=== PATIENT | female | born 1970 | race Caucasian/White ===

== ENCOUNTER 2023-06-14 08:40 | Emergency (ER) | payer OTHER, SELFPAY ==
[2023-06-14] VITALS (33 sets, daily range): BP systolic 84–129; BP diastolic 59–95; PULSE 71–102; RESP 10–27; O2SAT 92–99; BMI 38.7
--- NOTE | 2023-06-14 08:48 | XR_ITS ---
The [address] [address] Patient Name: ARSENIO DUMONT MRN: [id number] date: 1970 Sex: F Assigned Patient Location: ER Current Patient Location: ER Accession/Order Number: [id number] Exam Date: 06/14/2023 09:24 Report Date: 06/14/2023 09:58 At the request of: SUSAN KILLIAN Procedure: XR chest 1V EXAM: XR chest 1V HISTORY: Altered mental status COMPARISON: None. TECHNIQUE: AP view of the chest. FINDINGS: The cardiomediastinal silhouette is normal. The lungs are clear. There is no pneumothorax. No pleural effusion is noted. Posterior fusion of the visualized spine. XR/XR chest 1V IMPRESSION: No acute cardiopulmonary process. Electronically authenticated by: DENEEN JACOBS Date: 06/14/2023 09:58
--- NOTE | 2023-06-14 08:48 | ECG_ITS ---
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
--- NOTE | 2023-06-14 08:49 | CT_ITS ---
The [address] [address] Patient Name: ARSENIO DUMONT MRN: [id number] date: 1970 Sex: F Assigned Patient Location: ER Current Patient Location: [facility] Accession/Order Number: [id number] Exam Date: 06/14/2023 09:24 Report Date: 06/14/2023 09:54 At the request of: SUSAN KILLIAN Procedure: CT head/brain wo con CT head/brain wo con: 06/14/2023 9:24 AM EST CLINICAL HISTORY: 52 years old Female with Altered mental status, possible seizure. TECHNIQUE: CT head/brain wo con was performed without intravenous contrast administration. Axial CT images are obtained as well as sagittal and coronal reformations. Dose reduction techniques were achieved by using automated exposure control and/or adjustment of mA and/or kV according to patient size and/or use of iterative reconstruction technique. COMPARISON: None FINDINGS: The ventricles, gyri, sulcal patterns, and basal cisterns have a normal size and configuration for the patient's age. No intracranial hemorrhage or extra-axial fluid collection is identified. There is no evidence of focal mass or midline shift. The sr-white matter differentiation is preserved. The basal ganglia and thalami appear normal. The midbrain and cerebellum appear normal. The paranasal sinuses are normally aerated. Mastoid air cells are normally aerated. No appreciable scalp soft tissue swelling or depressed skull fractures are seen. CT/CT head/brain wo con IMPRESSION: No intracranial hemorrhage, mass effect or midline shift. Electronically authenticated by: DENEEN JACOBS Date: 06/14/2023 09:54
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
[2023-06-14 09:21] LABS: Basophils Percent Auto 0.6 % (0.2-2.0); Eosinophils Percent Auto 0.5 % (0.9-7.0); Hematocrit 36.6 % (36.0-48.0); Hemoglobin 12.1 g/dL (12.0-16.0); Immature Granulocytes Abs Auto 0.01 10^3/uL (0.00-0.03); Immature Granulocytes Pct Auto 0.2 % (0.0-0.5); Lymphocytes Absolute Auto 1.9 10^3/uL (1.2-3.8); Lymphocytes Percent Auto 29.3 % (20.5-60.0); Mean Corpuscular HGB Conc 33.1 g/dL (29.9-35.2); Mean Corpuscular Hemoglobin 29.5 pg (26.7-34.0); Mean Corpuscular Volume 89.3 fL (81.0-99.0); Mean Platelet Volume 9.3 fL (9.5-13.5); Monocytes Absolute Auto 0.6 10^3/uL (0.3-0.8); Monocytes Percent Auto 9.1 % (1.7-12.0); Neutrophils Percent Auto 60.3 % (43.0-75.0); Platelet Count 193 10^3/uL (150-450); Red Cell Distribution Width 12.2 % (11.0-15.0); White Blood Count 6.6 10^3/uL (4.0-11.0)
--- NOTE | 2023-06-14 09:22 | PC.NURSE ---
patient came in . She was found at a local business rocking back and fourth in her car. Squad assumed she had a seizure due to her having a Hx of seizures. When arrived at the hospital she was evaluated with no abnormal physical findings. patient is sluggish to respond but is aware of her birthday and where she lives she also knew she was taken to the hospital just not sure on which one. Patient had several medications in her bag including Percocet 10/ 325 that was filled on the 3rd of this month with 10 pills missing. Patient denies taking any today and stated she is under pain management for chronic back pain and intestinal problems.
[2023-06-14 09:30] LABS: Anion Gap 13.6; BUN Creatinine Ratio 21.6; Carbon Dioxide 27.1 mmol/L (21.0-32.0); Chloride 105 mmol/L (98-107); Estimated GFR (African America >60 (>=60); Estimated GFR (Non-African Ame >60 (>=60); Glucose 126 mg/dL (74-106); Potassium 3.7 mmol/L (3.5-5.1); Sodium 142 mmol/L (136-145)
[2023-06-14 10:01] LABS: Ethanol <3 mg/dL
--- NOTE | 2023-06-14 10:12 | PC.NURSE ---
Was asked by to check on patient. when I walked into the room I asked how she was feeling and asked why she was so far from home. Patient just responded by stating she is responding to me and would not answer my questions. She appears to not cooperating with treatment plan and will not answer questions asked to her.
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
[2023-06-14 14:48] LABS: Bilirubin Urine NEGATIVE (NEGATIVE); Blood Urine NEGATIVE (NEGATIVE); Clarity Urine CLEAR (CLEAR); Color Urine LT. YELLOW (YELLOW); Glucose Urine UA NEGATIVE (NEGATIVE); Ketones Urine NEGATIVE (NEGATIVE); Leukocyte Esterase Urine NEGATIVE (NEGATIVE); Nitrite Urine NEGATIVE (NEGATIVE); Protein Urine NEGATIVE (NEG/TRACE); Urobilinogen Urine 0.2 EU/dL (0.2-1.0)
[2023-06-14 14:57] LABS: Amphetamine Screen Urine NEGATIVE (NEGATIVE); Barbiturates Screen Urine NEGATIVE (NEGATIVE); Benzodiazepines Screen Urine NEGATIVE (NEGATIVE); Buprenorphine Screen Urine NEGATIVE (NEGATIVE); Cannabinoid Screen Urine NEGATIVE (NEGATIVE); Cocaine Screen Urine NEGATIVE (NEGATIVE); Methadone Screen Urine NEGATIVE (NEGATIVE); Methamphetamines Screen Urine NEGATIVE (NEGATIVE); Opiate Screen Urine NEGATIVE (NEGATIVE); Oxycodone Screen Urine POSITIVE (NEGATIVE); Phencyclidine Screen Urine NEGATIVE (NEGATIVE); Tricyclic Antidepressant Urine NEGATIVE (NEGATIVE)
[2023-06-14 14:59] LABS: RBC Urine 0-2 #/HPF (0-2); WBC Urine 0-2 #/HPF (NONE SEEN)
[2023-06-14 15:00] LABS: Bacteria Urine SMALL #/HPF (NONE SEEN); Cast Seen? NONE SEEN #/LPF (NONE SEEN); Crystals Seen? None Seen #/HPF (None Seen); Mucus Urine NONE SEEN (NONE SEEN); Squamous Epithelial Cell Urine RARE #/LPF (NONE/RARE)
== END 2023-06-14 18:31 ==
PROVIDERS: Emergency Provider Emergency Medicine
DX: F32.A Depression, unspecified (principal); Z79.899 Other long term (current) drug therapy
CPT/HCPCS: 36415; 70450; 71045; 80048; 80307; 80320; 81001; 85025; 93005; 99285